=== PATIENT | male | born 1975 | race Caucasian/White ===

== ENCOUNTER 2021-03-16 13:00 | Inpatient (IN) ==
[2021-03-16] MEDS ORDERED: Perflutren Lipid Microsphere 1.3 ML in 0.9 % Sodium Chloride 8.7 ML IVP PRN (16:22)
[2021-03-16] MEDS ORDERED: Melatonin 3 MG TABLET PO PRN (16:23)
[2021-03-16] MEDS ORDERED: Naloxone 0.4 MG/ML INJ IVP PRN (16:23)
[2021-03-16] MEDS: Furosemide 40 MG/4 ML VIAL IVP SCH (17:11)
[2021-03-16] MEDS: *HR* Heparin 5,000 UNIT/ML VIAL SQ SCH (18:28)
[2021-03-16] MEDS ORDERED: *HR* Metoprolol 5 MG/5 ML VIAL IVP ONE (22:35)
[2021-03-17] MEDS: *HR* Heparin 5,000 UNIT/ML VIAL SQ SCH ×2 (05:29→20:57)
[2021-03-17 06:44] LABS: Basophils # 0.1 K/mcL (0.0-0.2); Basophils % 0.7 %; Eosinophils # 0.1 K/mcL (0.0-0.6); Eosinophils % 1.4 %; Hematocrit 46.3 % (37.5-50.1); Hemoglobin 14.7 g/dL (12.9-16.9); Immature Granulocytes % 0.3 % (0-4); Lymphocytes # 1.4 K/mcL (0.6-4.6); Lymphocytes % 16.4 %; Mean Corpuscular HGB Conc 31.7 g/dL (31.6-35.5); Mean Corpuscular Hemoglobin 27.3 pg (28.0-33.3); Mean Corpuscular Volume 86.1 fL (83.0-100.0); Mean Platelet Volume 9.3 fL (9.4-12.4); Monocytes # 0.8 K/mcL (0.0-1.3); Monocytes % 9.6 %; Neutrophils # 6.2 K/mcL (1.6-8.9); Platelet Count 383 K/mcL (140-400); Red Blood Count 5.38 M/mcL (4.19-5.50); Red Cell Distribution Width 14.4 % (11.5-14.5); Segmented Neutrophils % 71.6 %; White Blood Count 8.6 K/mcL (4.3-11.1)
[2021-03-17] MEDS ORDERED: *HR* Labetalol 20 MG/4 ML SYRINGE IVP ONE (07:15)
[2021-03-17 07:24] LABS: Albumin 3.7 g/dL (3.5-5.7); Albumin/Globulin Ratio 1.7 (1.1-2.2); Bilirubin,Total 1.2 mg/dL (0.3-1.0); Calcium 8.8 mg/dL (8.6-10.3); Globulin 2.2 g/dL (2.4-3.5); Potassium 3.3 mEq/L (3.5-5.1); Total Protein 5.9 g/dL (6.4-8.9); Troponin I 0.06 ng/mL (< 0.04)
[2021-03-17] MEDS: Aspirin 81 MG TAB.CHEW PO SCH (07:49)
[2021-03-17] MEDS: Furosemide 40 MG/4 ML VIAL IVP SCH ×2 (07:50→20:55)
[2021-03-17 10:22] LABS: Estimated Average Glucose 117 mg/dl; Hemoglobin A1C 5.7 %
[2021-03-18 03:27] LABS: Basophils % 0.3 %; Eosinophils # 0.1 K/mcL (0.0-0.6); Eosinophils % 0.9 %; Hematocrit 42.8 % (37.5-50.1); Hemoglobin 13.5 g/dL (12.9-16.9); Immature Granulocytes % 0.4 % (0-4); Lymphocytes # 1.2 K/mcL (0.6-4.6); Lymphocytes % 9.7 %; Mean Corpuscular HGB Conc 31.5 g/dL (31.6-35.5); Mean Corpuscular Volume 88.6 fL (83.0-100.0); Mean Platelet Volume 9.4 fL (9.4-12.4); Monocytes # 1.5 K/mcL (0.0-1.3); Monocytes % 11.7 %; Neutrophils # 9.5 K/mcL (1.6-8.9); Platelet Count 352 K/mcL (140-400); Red Blood Count 4.83 M/mcL (4.19-5.50); Red Cell Distribution Width 14.2 % (11.5-14.5); White Blood Count 12.4 K/mcL (4.3-11.1)
[2021-03-18 03:39] LABS: Albumin 3.6 g/dL (3.5-5.7); Albumin/Globulin Ratio 1.6 (1.1-2.2); Bilirubin,Total 0.8 mg/dL (0.3-1.0); Calcium 8.7 mg/dL (8.6-10.3); Globulin 2.2 g/dL (2.4-3.5); Potassium 3.3 mEq/L (3.5-5.1); Total Protein 5.8 g/dL (6.4-8.9)
[2021-03-18] MEDS: Acetaminophen 325 MG TABLET PO PRN (04:26)
[2021-03-18] MEDS: *HR* Heparin 5,000 UNIT/ML VIAL SQ SCH ×2 (04:26→22:44)
[2021-03-18] MEDS: Loratadine 10 MG TABLET PO SCH (08:22)
[2021-03-18] MEDS: Furosemide 40 MG/4 ML VIAL IVP SCH (08:22)
[2021-03-18] MEDS: Aspirin 81 MG TAB.CHEW PO SCH (08:22)
[2021-03-18] MEDS ORDERED: lisinopriL 5 MG TABLET PO ONE (11:30)
[2021-03-18 11:55] LABS: Thyroid Stimulating Hormone 2.354 mcIU/mL (0.340-5.600)
[2021-03-18 12:29] LABS: Bilirubin,Urine Negative (Negative); Blood,Urine Negative (Negative); Clarity,Urine Clear (Clear); Color,Urine Colorless (Yellow); Glucose,Urine (UA) Normal (Normal); Ketones,Urine Negative (Negative); Leukocyte Esterase,Urine Negative (Negative); Nitrite,Urine Negative (Negative); Protein,Urine Negative (Neg-Trace); Urobilinogen,Urine Normal (Normal)
[2021-03-18] MEDS: carvediloL 6.25 MG TABLET PO SCH ×2 (12:42→17:10)
[2021-03-18] MEDS: Isosorbide MONOnitrate (24 HR) 60 MG TAB.ER.24H PO SCH (12:42)
[2021-03-18] MEDS: hydrALAZINE 25 MG TABLET PO SCH ×2 (16:19→22:44)
[2021-03-18 16:24] LABS: Calcium 8.6 mg/dL (8.6-10.3); Potassium 3.3 mEq/L (3.5-5.1)
[2021-03-18] MEDS ORDERED: Furosemide 40 MG/4 ML VIAL IVP SCH (21:00)
[2021-03-19] MEDS: *HR* Heparin 5,000 UNIT/ML VIAL SQ SCH ×2 (05:39→18:49)
[2021-03-19] MEDS ORDERED: Albumin 25% 25gram/100mL 25 GM/100 ML IV.SOLN IVPB ONE (07:14)
[2021-03-19] MEDS ORDERED: Potassium Chloride Elixir 20 MEQ/15 ML UDC PO ONE (07:16)
[2021-03-19 09:26] LABS: Basophils % 0.3 %; Eosinophils # 0.2 K/mcL (0.0-0.6); Eosinophils % 1.9 %; Hematocrit 43.5 % (37.5-50.1); Hemoglobin 13.9 g/dL (12.9-16.9); Immature Granulocytes % 0.3 % (0-4); Lymphocytes # 1.1 K/mcL (0.6-4.6); Lymphocytes % 9.2 %; Mean Corpuscular Hemoglobin 27.4 pg (28.0-33.3); Mean Corpuscular Volume 85.6 fL (83.0-100.0); Mean Platelet Volume 9.3 fL (9.4-12.4); Monocytes # 1.5 K/mcL (0.0-1.3); Monocytes % 12.2 %; Neutrophils # 9.1 K/mcL (1.6-8.9); Platelet Count 344 K/mcL (140-400); Red Blood Count 5.08 M/mcL (4.19-5.50); Red Cell Distribution Width 13.9 % (11.5-14.5); Segmented Neutrophils % 76.1 %
[2021-03-19 09:44] LABS: Albumin 3.9 g/dL (3.5-5.7); Albumin/Globulin Ratio 1.5 (1.1-2.2); Globulin 2.6 g/dL (2.4-3.5); Potassium 3.3 mEq/L (3.5-5.1); Total Protein 6.5 g/dL (6.4-8.9)
[2021-03-19] MEDS: Loratadine 10 MG TABLET PO SCH (10:36)
[2021-03-19] MEDS: hydrALAZINE 25 MG TABLET PO SCH ×2 (10:36→18:49)
[2021-03-19] MEDS: Aspirin 81 MG TAB.CHEW PO SCH (10:36)
[2021-03-19] MEDS: carvediloL 6.25 MG TABLET PO SCH ×2 (10:36→18:49)
[2021-03-19] MEDS: Isosorbide MONOnitrate (24 HR) 60 MG TAB.ER.24H PO SCH (10:36)
[2021-03-19 12:54] LABS: Creatinine,Urine 36 mg/dL
[2021-03-19] MEDS ORDERED: Furosemide 40 MG/4 ML VIAL IVP ONE (16:41)
[2021-03-20] MEDS: hydrALAZINE 25 MG TABLET PO SCH ×4 (00:26→23:56)
[2021-03-20 03:33] LABS: Hematocrit 40.1 % (37.5-50.1); Hemoglobin 12.9 g/dL (12.9-16.9); Mean Corpuscular HGB Conc 32.2 g/dL (31.6-35.5); Mean Corpuscular Hemoglobin 27.7 pg (28.0-33.3); Mean Corpuscular Volume 86.1 fL (83.0-100.0); Mean Platelet Volume 9.5 fL (9.4-12.4); Platelet Count 336 K/mcL (140-400); Red Blood Count 4.66 M/mcL (4.19-5.50); Red Cell Distribution Width 13.9 % (11.5-14.5); White Blood Count 12.4 K/mcL (4.3-11.1)
[2021-03-20 03:50] LABS: Calcium 8.6 mg/dL (8.6-10.3); Magnesium 1.9 mg/dL (1.6-2.6); Phosphorous 3.8 mg/dL (2.7-4.5); Potassium 3.3 mEq/L (3.5-5.1); Uric Acid 10.1 mg/dL (2.3-7.6)
[2021-03-20 04:24] LABS: Hepatitis B Surface Antigen Nonreactive (Nonreactive)
[2021-03-20 04:53] LABS: Hepatitis B Core IgM Nonreactive (Nonreactive); Hepatitis C Virus Antibody Nonreactive (Nonreactive)
[2021-03-20 04:55] LABS: Hepatitis A Antibody IgM Nonreactive (Nonreactive)
[2021-03-20] MEDS: *HR* Heparin 5,000 UNIT/ML VIAL SQ SCH ×2 (05:46→18:34)
[2021-03-20] MEDS ORDERED: Potassium Chloride Elixir 20 MEQ/15 ML UDC PO ONE (07:11)
[2021-03-20] MEDS ORDERED: Heparin 1,000 UNITS/500 mL 500 ML ONE (10:54)
[2021-03-20] MEDS ORDERED: *HR* Heparin 10,000 UNIT/10 ML VIAL ONE ×2 (10:54→12:37)
[2021-03-20] MEDS ORDERED: ISOVUE-370 200 ML INFUS..BTL ONE ×2 (10:55→12:54)
[2021-03-20] MEDS ORDERED: Nitroglycerin 1,000 MCG/5 ML VIAL IV ONE (10:55)
[2021-03-20] MEDS ORDERED: 0.9 % Sodium Chloride 1,000 ML ONE ×2 (10:55→10:59)
[2021-03-20] MEDS: carvediloL 6.25 MG TABLET PO SCH ×2 (10:59→18:34)
[2021-03-20] MEDS: Loratadine 10 MG TABLET PO SCH (10:59)
[2021-03-20] MEDS: Aspirin 81 MG TAB.CHEW PO SCH (10:59)
[2021-03-20] MEDS: Isosorbide MONOnitrate (24 HR) 60 MG TAB.ER.24H PO SCH (10:59)
[2021-03-20] MEDS ORDERED: *HR* Midazolam HCl 2 MG/2 ML VIAL ONE (11:52)
[2021-03-20] MEDS ORDERED: *HR* FentaNYL (PF) 100 MCG/2 ML VIAL ONE (11:52)
[2021-03-20] MEDS ORDERED: Furosemide 40 MG/4 ML VIAL ONE (12:48)
[2021-03-20] MEDS ORDERED: *HR* Bivalirudin 250 MG VIAL IVC ONE (12:48)
[2021-03-20] MEDS ORDERED: Aspirin 325 MG TABLET ONE (13:15)
[2021-03-20 20:38] LABS: Protein/Creatinine Ratio,Urine 0.52 mg/mg (0.00-0.20); Sodium, Urine 82.1 mEq/L
[2021-03-21 02:34] LABS: Hemoglobin 12.5 g/dL (12.9-16.9); Mean Corpuscular HGB Conc 31.3 g/dL (31.6-35.5); Mean Corpuscular Volume 86.4 fL (83.0-100.0); Platelet Count 300 K/mcL (140-400); Red Blood Count 4.63 M/mcL (4.19-5.50); Red Cell Distribution Width 13.9 % (11.5-14.5); White Blood Count 10.3 K/mcL (4.3-11.1)
[2021-03-21 02:46] LABS: Calcium 8.5 mg/dL (8.6-10.3); Potassium 3.5 mEq/L (3.5-5.1)
[2021-03-21] MEDS: *HR* Heparin 5,000 UNIT/ML VIAL SQ SCH ×2 (04:54→18:02)
[2021-03-21] MEDS: Acetaminophen 325 MG TABLET PO PRN ×2 (04:54→20:11)
[2021-03-21] MEDS: hydrALAZINE 25 MG TABLET PO SCH ×2 (08:37→18:05)
[2021-03-21] MEDS: Aspirin 81 MG TAB.CHEW PO SCH ×2 (08:38→09:06)
[2021-03-21] MEDS: Isosorbide MONOnitrate (24 HR) 60 MG TAB.ER.24H PO SCH (08:38)
[2021-03-21] MEDS: Loratadine 10 MG TABLET PO SCH (08:38)
[2021-03-21] MEDS: carvediloL 6.25 MG TABLET PO SCH ×2 (08:38→18:01)
[2021-03-21] MEDS ORDERED: Furosemide 20 MG TABLET PO PRN (10:44)
[2021-03-21] MEDS ORDERED: Albumin 25% 25gram/100mL 25 GM/100 ML IV.SOLN IVPB ONE (16:13)
[2021-03-21] MEDS ORDERED: Furosemide 40 MG/4 ML VIAL IVP ONE (16:30)
[2021-03-22] MEDS: hydrALAZINE 25 MG TABLET PO SCH ×2 (00:39→10:27)
[2021-03-22 04:12] VITALS: O2SAT 99
[2021-03-22] MEDS: carvediloL 6.25 MG TABLET PO SCH ×2 (05:15→10:27)
[2021-03-22] MEDS: *HR* Heparin 5,000 UNIT/ML VIAL SQ SCH (05:20)
[2021-03-22 05:33] LABS: Hematocrit 42.2 % (37.5-50.1); Hemoglobin 13.1 g/dL (12.9-16.9); Mean Corpuscular Hemoglobin 27.1 pg (28.0-33.3); Mean Corpuscular Volume 87.2 fL (83.0-100.0); Mean Platelet Volume 9.8 fL (9.4-12.4); Platelet Count 328 K/mcL (140-400); Red Blood Count 4.84 M/mcL (4.19-5.50); Red Cell Distribution Width 13.6 % (11.5-14.5); White Blood Count 10.7 K/mcL (4.3-11.1)
[2021-03-22 08:09] LABS: Calcium 8.8 mg/dL (8.6-10.3); Potassium 3.4 mEq/L (3.5-5.1)
[2021-03-22] MEDS: Aspirin 81 MG TAB.CHEW PO SCH (10:27)
[2021-03-22] MEDS: Loratadine 10 MG TABLET PO SCH (10:27)
[2021-03-22] MEDS: Isosorbide MONOnitrate (24 HR) 60 MG TAB.ER.24H PO SCH (10:27)
[2021-03-22 12:34] VITALS: BP 129/96; PULSE 90; TEMP 98.8
== END 2021-03-22 16:05 | disposition home or self-care (01) | DRG 175 ==
LOC: 3BNU → 3NENU 03-17 16:16 → SUATTDRO 03-17 18:56
PROVIDERS: ADMIT Internal Medicine; ATTEND Internal Medicine

== ENCOUNTER 2021-05-26 15:45 | Inpatient (IN) ==
[2021-05-26] MEDS ORDERED: Naloxone 0.4 MG/ML INJ IVP PRN (17:31)
[2021-05-26] MEDS ORDERED: Ondansetron 4 MG/2 ML VIAL IVP PRN (17:31)
[2021-05-26] MEDS ORDERED: Acetaminophen 325 MG TABLET PO PRN (17:31)
[2021-05-26] MEDS: *HR* Labetalol 20 MG/4 ML SYRINGE IVP PRN (19:39)
[2021-05-27] MEDS ORDERED: *HR* Metoprolol 5 MG/5 ML VIAL IVP ONE (00:53)
[2021-05-27 02:23] LABS: Basophils # 0.1 K/mcL (0.0-0.2); Basophils % 0.6 %; Eosinophils # 0.1 K/mcL (0.0-0.6); Eosinophils % 1.5 %; Hematocrit 42.2 % (37.5-50.1); Hemoglobin 13.6 g/dL (12.9-16.9); Immature Granulocytes % 0.2 % (0-4); Lymphocytes # 1.7 K/mcL (0.6-4.6); Lymphocytes % 19.1 %; Mean Corpuscular HGB Conc 32.2 g/dL (31.6-35.5); Mean Corpuscular Hemoglobin 27.8 pg (28.0-33.3); Mean Corpuscular Volume 86.3 fL (83.0-100.0); Mean Platelet Volume 9.7 fL (9.4-12.4); Monocytes % 11.4 %; Platelet Count 346 K/mcL (140-400); Red Blood Count 4.89 M/mcL (4.19-5.50); Red Cell Distribution Width 16.6 % (11.5-14.5); Segmented Neutrophils % 67.2 %
[2021-05-27 02:37] LABS: Calcium 8.8 mg/dL (8.6-10.3); Potassium 3.4 mEq/L (3.5-5.1)
[2021-05-27 02:39] LABS: Albumin/Globulin Ratio 1.6 (1.1-2.2); Bilirubin,Direct 0.2 mg/dL (0.0-0.2); Bilirubin,Indirect 0.8 mg/dL (0.0-1.0); Globulin 2.5 g/dL (2.4-3.5); Total Protein 6.5 g/dL (6.4-8.9)
[2021-05-27 03:21] LABS: Hepatitis B Surface Antigen Nonreactive (Nonreactive)
[2021-05-27] MEDS: *HR* Labetalol 20 MG/4 ML SYRINGE IVP PRN (03:23)
[2021-05-27 03:50] LABS: Hepatitis C Virus Antibody Nonreactive (Nonreactive)
[2021-05-27 03:51] LABS: Hepatitis A Antibody IgM Nonreactive (Nonreactive)
[2021-05-27] MEDS ORDERED: Furosemide 40 MG/4 ML VIAL IVP ONE (07:08)
[2021-05-27] MEDS ORDERED: Perflutren Lipid Microsphere 1.3 ML in 0.9 % Sodium Chloride 8.7 ML IVP PRN (07:17)
[2021-05-27] MEDS: Aspirin 81 MG TAB.CHEW PO SCH (08:06)
[2021-05-27] MEDS: carvediloL 25 MG TABLET PO SCH ×2 (08:06→16:33)
[2021-05-27] MEDS: Isosorbide MONOnitrate (24 HR) 30 MG TAB.ER.24H PO SCH (08:07)
[2021-05-27 08:19] LABS: Estimated Average Glucose 128 mg/dl; Hemoglobin A1C 6.1 %
[2021-05-27] MEDS: hydrALAZINE 25 MG TABLET PO SCH (16:33)
[2021-05-28] MEDS: hydrALAZINE 25 MG TABLET PO SCH ×3 (00:09→16:04)
[2021-05-28 02:01] LABS: Basophils % 0.5 %; Eosinophils # 0.2 K/mcL (0.0-0.6); Eosinophils % 2.5 %; Hematocrit 39.8 % (37.5-50.1); Hemoglobin 12.9 g/dL (12.9-16.9); Immature Granulocytes % 0.4 % (0-4); Lymphocytes # 1.3 K/mcL (0.6-4.6); Lymphocytes % 18.2 %; Mean Corpuscular HGB Conc 32.4 g/dL (31.6-35.5); Mean Corpuscular Hemoglobin 27.7 pg (28.0-33.3); Mean Corpuscular Volume 85.4 fL (83.0-100.0); Mean Platelet Volume 9.9 fL (9.4-12.4); Monocytes # 0.8 K/mcL (0.0-1.3); Monocytes % 11.3 %; Neutrophils # 4.9 K/mcL (1.6-8.9); Platelet Count 346 K/mcL (140-400); Red Blood Count 4.66 M/mcL (4.19-5.50); Red Cell Distribution Width 16.3 % (11.5-14.5); Segmented Neutrophils % 67.1 %; White Blood Count 7.3 K/mcL (4.3-11.1)
[2021-05-28 02:23] LABS: Calcium 8.6 mg/dL (8.6-10.3); Potassium 3.5 mEq/L (3.5-5.1)
[2021-05-28] MEDS: Aspirin 81 MG TAB.CHEW PO SCH (07:49)
[2021-05-28] MEDS: Isosorbide MONOnitrate (24 HR) 30 MG TAB.ER.24H PO SCH (07:49)
[2021-05-28] MEDS: carvediloL 25 MG TABLET PO SCH ×2 (07:49→16:05)
[2021-05-28] MEDS ORDERED: Furosemide 20 MG TABLET PO PRN (08:13)
[2021-05-28] MEDS ORDERED: Furosemide 20 MG/2 ML VIAL IVP ONE (11:40)
[2021-05-29 01:58] VITALS: O2SAT 97
[2021-05-29] MEDS: hydrALAZINE 25 MG TABLET PO SCH ×2 (01:58→06:49)
[2021-05-29 06:05] LABS: Basophils # 0.1 K/mcL (0.0-0.2); Basophils % 0.9 %; Eosinophils # 0.2 K/mcL (0.0-0.6); Eosinophils % 2.4 %; Hematocrit 40.8 % (37.5-50.1); Hemoglobin 13.2 g/dL (12.9-16.9); Immature Granulocytes % 0.3 % (0-4); Lymphocytes # 1.5 K/mcL (0.6-4.6); Lymphocytes % 21.9 %; Mean Corpuscular HGB Conc 32.4 g/dL (31.6-35.5); Mean Corpuscular Hemoglobin 27.8 pg (28.0-33.3); Mean Corpuscular Volume 86.1 fL (83.0-100.0); Mean Platelet Volume 9.6 fL (9.4-12.4); Monocytes # 0.9 K/mcL (0.0-1.3); Monocytes % 13.2 %; Neutrophils # 4.3 K/mcL (1.6-8.9); Platelet Count 365 K/mcL (140-400); Red Blood Count 4.74 M/mcL (4.19-5.50); Red Cell Distribution Width 16.2 % (11.5-14.5); Segmented Neutrophils % 61.3 %
[2021-05-29 06:19] LABS: Calcium 8.7 mg/dL (8.6-10.3); Magnesium 2.2 mg/dL (1.6-2.6); Potassium 3.5 mEq/L (3.5-5.1)
[2021-05-29 06:41] VITALS: BP 139/103; PULSE 86; TEMP 97.6
[2021-05-29] MEDS: carvediloL 25 MG TABLET PO SCH (06:49)
[2021-05-29] MEDS: Aspirin 81 MG TAB.CHEW PO SCH (07:40)
[2021-05-29] MEDS: Isosorbide MONOnitrate (24 HR) 30 MG TAB.ER.24H PO SCH (07:41)
[2021-05-29] MEDS ORDERED: Loratadine 10 MG TABLET PO SCH (09:00)
== END 2021-05-29 12:08 | disposition home or self-care (01) | DRG 194 ==
LOC: 2ANU → SUATTDRO 17:10
PROVIDERS: ADMIT Pharmacist; ATTEND Pharmacist